=== PATIENT | female | born 1995 | race African-American/Black ===

== ENCOUNTER 2019-06-03 08:03 | Day surgery (SDC) | payer MEDICAID, OTHER ==
[~2019-06-03] VITALS: Ht 144.8 cm; Wt 52.0 kg
[~2019-06-03 08:03] MED LIST: ALBU2.5V8 INH; DOCU-109 PO; HYDROmorphone 2 MG/ML VIAL IV PRN; IV RINGERS,LACTATED 1000ML 1,000 ML IV SCH; Ibuprofen PO; LIDOCAINE 1% PF 2 ML VIAL. ID PRN; MORPHINE SULFATE 2 MG/ML VIAL. IV PRN; NORG1TAB6 PO; ONDANSETRON PF 4 MG/2 ML VIAL. IV PRN; OXYC1TAB15 PO; PRED20TA PO; PROCHLORPERAZINE 10 MG/2 ML VIAL. IV PRN; fentaNYL PF VIAL 100 MCG/2 ML VIAL IV PRN
[2019-06-03] MEDS ORDERED: PROPOFOL 20 ML IV ONE (09:39)
[2019-06-03] MEDS ORDERED: ONDANSETRON PF 4 MG/2 ML VIAL. ONE (09:39)
[2019-06-03] MEDS ORDERED: MIDAZOLAM HCL/PF 2 MG/2 ML VIAL. ONE (09:39)
[2019-06-03] MEDS ORDERED: DEXAMETHASONE SOD PHOS 4 MG/ML VIAL ONE (09:39)
[2019-06-03] MEDS ORDERED: LIDOCAINE 2% PF 5 ML VIAL. ONE (09:39)
[2019-06-03] MEDS ORDERED: KETOROLAC 30 MG/ML VIAL. ONE (09:40)
[2019-06-03] MEDS ORDERED: fentaNYL PF VIAL 100 MCG/2 ML VIAL ONE (11:34)
[2019-06-03] MEDS ORDERED: SEVOFLURANE 16 TO 30 MINUTES. IH ONE (11:55)
--- NOTE | 2019-06-03 12:00 | PDOC ---
BRIEF OPERATIVE NOTE Date: Jun 03, 2019 Pre-Op Diagnosis AUB Post-Op Diagnosis SAme + endometrial polyp Procedure [place] [facility] [place]izarro Anesthesia Type: General Blood Loss 10 ml Specimens Obtained endometrial biopsy of endometrial polyp Findings endometrial polyp Complications none Operative Note see dictation MASOUD PIZARRO Jr, MD Jun 03, 2019 12:00
--- NOTE | 2019-06-03 12:01 | DISCH ---
DISCHARGE INSTRUCTIONS Condition on Discharge Condition on Discharge: Stable Activity After Discharge Activity Instructions for Disc: Activity as tolerated Lifting Instructions after Dis: No heavy lifting Driving Instructions after Dis: Do not drive today Diet after Discharge Diet after Discharge: Regular Contacting the DRNanci after DC Call your doctor for: Concerns you may have Follow-Up Follow up with: Dr. Pizarro in 1 week MASOUD PIZARRO Jr, MD Jun 03, 2019 12:01
--- NOTE | 2019-06-03 12:16 | OP ---
DATE OF SURGERY: PREOPERATIVE DIAGNOSIS: Abnormal uterine bleeding. POSTOPERATIVE DIAGNOSES: Abnormal uterine bleeding plus endometrial polyps. SURGEON: Yoseph Pizarro MD PROCEDURE: Operative hysteroscopy. ANESTHESIA: GETA. ESTIMATED BLOOD LOSS: Less than 10 mL. COMPLICATIONS: None. FINDINGS: Endometrial polyps, normal fallopian tube ostia bilaterally. SUMMARY: A 23-year-old female with abnormal uterine bleeding, unresponsive to medical treatment, presented for operative hysteroscopy and voiced clear understanding to all risks, benefits and expectations and desired to proceed. DESCRIPTION OF PROCEDURE: The patient was taken to surgery suite and placed in dorsal lithotomy position. She was prepped with Betadine solution and draped in sterile fashion. After adequate anesthesia, weighted speculum and curved Mooers placed vaginally. Anterior lip of the cervix grasped with single tooth tenaculum. Cervix was dilated with Hegar dilators up to size 7. The curved Mooers retractor was removed. The TruClear hysteroscope was placed. There were two small polyps that were removed with the TruClear hysteroscope. The remaining of the endometrial cavity appeared homogenous and normal. The hysteroscope was removed. Single tooth tenaculum, weighted speculum removed. The patient tolerated the procedure well and was taken to recovery room in stable condition. Sponge and needle count correct x 3. YOSEPH PIZARRO MD DR: VIKTORIYA/nts JOB#: [id number] / [id number]
[2019-06-03] MEDS ORDERED: IBUP200T44 PO (12:24)
[2019-06-03] MEDS ORDERED: IBUPROFEN 400 MG TABLET. PO ONE (12:30)
[2019-06-03 13:00] VITALS: BP 119/67
--- NOTE | 2019-06-04 18:06 | PATHOLOGY ---
[facility] Accession Number: [id number] . 01 Material submitted: . endometrium - ENDOMETRIAL POLYP . 02 Diagnosis: Endometrial curettings: - Endometrial polyp. - Secretory endometrium. LBQ 06/04/2019 1533 Local . 02 Comment: Sections of the endometrial curettings reveal multiple segments of endometrial polyp and secretory endometrium. There is no evidence of hyperplasia or malignancy. (JPM/db; 06/04/2019) . 02 Electronically signed: . Goldy Bledsoe MD, Pathologist NPI- [id number] . 01 Gross description: . The specimen is received in formalin, labeled "Rodriguez, Maria Isabel, endometrial polyp", is a stockinet bag containing multiple irregular fragments of hunt to bustos soft tissues measuring 2.0 x 2.0 x 0.7 in aggregate. The specimen is entirely submitted in A1-A2. ([facility]; 06/03/2019). [facility] 06/03/2019 1747 Local . 02 Pathologist provided ICD-10: N84.0 . 02 CPT . 802503 Specimen Comment: A courtesy copy of this report has been sent to [phone] Specimen Comment: [id number] Specimen Comment: Report sent to / DR ARAGON Performed at: 01 [facility] [address], [place] [id number] MD Huy Carpenter MD Phone: [phone] Performed at: 02 [facility] [place] [address] [place], [place] [id number] MD Goldy Bledsoe MD Phone: [phone]
== END 2019-06-03 13:05 | disposition home or self-care (01) ==
LOC: SURG 08:03
PROVIDERS: ATTEND Obstetrics & Gynecology
DX: N93.9 Abnormal uterine and vaginal bleeding, unspecified (principal); N84.0 Polyp of corpus uteri; F15.90 Other stimulant use, unspecified, uncomplicated
CPT/HCPCS: 58558; 81025; A7015; J0690; J1100; J1885; J2001; J2250; J2405; J2704; J3010; J7120; 88305

== ENCOUNTER 2021-08-09 08:55 | Day surgery (SDC) | payer MEDICAID ==
[~2021-08-09] VITALS: Ht 144.8 cm; Wt 63.0 kg
[~2021-08-09 08:55] MED LIST changes: +HYDROmorphone 2 MG/ML INJ. IVP PRN; -HYDROmorphone 2 MG/ML VIAL IV PRN; +IBUP200T44 PO; -LIDOCAINE 1% PF 2 ML VIAL. ID PRN; +MORPHINE SULFATE 2 MG/ML INJ. IVP PRN; -MORPHINE SULFATE 2 MG/ML VIAL. IV PRN; -ONDANSETRON PF 4 MG/2 ML VIAL. IV PRN; -PROCHLORPERAZINE 10 MG/2 ML VIAL. IV PRN; +PROCHLORPERAZINE 10 MG/2 ML VIAL. IVP PRN; +ceFAZolin SODIUM IV Push 1 GM VIAL. IVP ONE; +ceFAZolin SODIUM IV Push 1 GM VIAL. IVP PRN; -fentaNYL PF VIAL 100 MCG/2 ML VIAL IV PRN; +fentaNYL PF VIAL 100 MCG/2 ML VIAL IVP PRN
[2021-08-09] MEDS ORDERED: NORE1PAT7 TD (09:17)
--- NOTE | 2021-08-09 10:07 | PDOC4 ---
BRIEF OPERATIVE NOTE Date: Aug 09, 2021 Pre-Op Diagnosis FELICE 1 Post-Op Diagnosis FELICE 1 Procedure Performed Cold Knife Cone Bx Surgeon Dr. Pizarro Anesthesia Type: General Blood Loss 10 ml Specimens Obtained anterior and posterior lip of cervix Findings cervical dysplasia Complications none Operative Note see dictation MASOUD PIZARRO Jr, MD Aug 09, 2021 10:07
[2021-08-09] MEDS ORDERED: OXYC1TAB15 PO (10:08)
--- NOTE | 2021-08-09 10:09 | DISCH ---
DISCHARGE INSTRUCTIONS Condition on Discharge Condition on Discharge: Stable Activity After Discharge Activity Instructions for Disc: Activity as tolerated Lifting Instructions after Dis: No heavy lifting Driving Instructions after Dis: Do not drive today Diet after Discharge Diet after Discharge: Regular Contacting the DRNanci after DC Call your doctor for: Concerns you may have Follow-Up Follow up with: Dr. Pizarro in 2 weeks. MASOUD PIZARRO Jr, MD Aug 09, 2021 10:09
--- NOTE | 2021-08-09 10:13 | OP ---
DATE OF SURGERY: 08/09/2021 PREOPERATIVE DIAGNOSIS: Cervical intraepithelial neoplasia 1. POSTOPERATIVE DIAGNOSIS: Cervical intraepithelial neoplasia 1. PROCEDURE: Cold knife cone biopsy. SURGEON: Yoseph Pizarro MD ANESTHESIA: GETA. ESTIMATED BLOOD LOSS: 10 mL COMPLICATIONS: None. FINDINGS: Cervical dysplasia. SPECIMENS: Anterior and posterior lip of the cervix. SUMMARY: A 25-year-old patient with cervical dysplasia and FELICE 1, requiring cervical cone biopsy. She was counseled on the risks, benefits and expectations and voiced a clear understanding to proceed. DESCRIPTION OF PROCEDURE: The patient was taken to surgery suite and placed in dorsal lithotomy position, was prepped with Betadine solution and draped in sterile fashion. After adequate anesthesia, weighted speculum and curved Harwood placed vaginally. Anterior lip of the cervix grasped with single tooth tenaculum. Cervix was injected with 1% lidocaine with epinephrine in a circumferential manner, 2-0 Vicryl pop-offs were placed at 3 o'clock and 9 o'clock position to better stabilize the cervix. Single tooth tenaculum was removed. The 45-degree angle scapula was utilized to make a cone biopsy of the anterior and posterior lip of the cervix for excision. Remaining cervix was cauterized with Bovie cautery. Monsel solution was also applied for better hemostasis. The weighted speculum was removed. The patient tolerated the procedure without any difficulty and was taken to recovery room in stable condition. Sponge and needle count correct x 3. VIKTORIYA/CORI DR: Jessica TID: [id number]
[2021-08-09 10:51] VITALS: BP 118/64
--- NOTE | 2021-08-10 17:10 | PATHOLOGY ---
[facility] Accession Number: [id number] . 01 Material submitted: . cervix - CERVICAL CONE BIOPSY SUTURE AT 12:00 . 01 Clinical history: . ABNORMAL PAP SMEAR CERVICAL CONE BIOPSY . 02 Diagnosis: Uterine cervix, cervical cone biopsy: - Moderate to severe dysplasia (FELICE 2-3), with focal superficial endocervical glandular extension. - Endocervical, exocervical, and deep margins negative for dysplasia. - Chronic cervicitis with squamous metaplasia. - Nabothian cysts. (JPM:pit; 08/10/2021) [facility] 08/10/2021 1647 Local . 02 Comment: There is moderate to focal severe dysplasia in the 6:00-9:00 and 9:00-12:00 regions, with focal superficial endocervical glandular extension. The endocervical, exocervical, and deep margins are negative for dysplasia. There is no evidence of malignancy. (JPM:pit; 08/10/2021) . 02 Electronically signed: . Goldy Bledsoe MD, Pathologist NPI- [id number] . 01 Gross description: . The specimen is received in formalin, labeled "Rodriguez, Porshe, cervical cone BX-suture at 12:00". Received is an intact oriented LEEP specimen measuring 1.8 x 1.5 x 1.3 cm in greatest dimensions with a suture designating 12:00. The 0.6 cm cervical os is surrounded by pink-bustos and roughened to slightly granular ectocervical mucosa. The endocervical margin is inked blue and the remaining margin is inked black. The specimen is radially sectioned and entirely submitted as follows: . A1- 12:00-3:00 A2- 3:00-6:00 A3- 6:00-9:00 A4- 9:00-12:00 ([facility]; 08/09/2021) NRI/NRI 08/09/2021 [facility] Local . 02 Pathologist provided ICD-10: N87.1, N72, N88.8 . 02 CPT . 233665 Specimen Comment: A courtesy copy of this report has been sent to [phone] Specimen Comment: Report sent to Performed at: [address], [place] [id number] MD Zelalem Daley MD Phone: [phone] [facility]formed at: 02 [facility] [address] [place] [id number] MD Goldy Bledsoe MD Phone: [phone]
== END 2021-08-09 11:20 | disposition home or self-care (01) ==
LOC: SURG 08:55
PROVIDERS: ATTEND Obstetrics & Gynecology
DX: N87.0 Mild cervical dysplasia (principal); N87.9 Dysplasia of cervix uteri, unspecified; N87.1 Moderate cervical dysplasia; N72 Inflammatory disease of cervix uteri; N88.8 Other specified noninflammatory disorders of cervix uteri; Z79.899 Other long term (current) drug therapy; Z98.890 Other specified postprocedural states
CPT/HCPCS: 57520; 81025; 88307; A4930; J0690